=== PATIENT | female | born 1970 | race Caucasian/White ===

== ENCOUNTER → 2018-06-19 | Outpatient (CLI) | payer BC ==
[~2018-06-19] MED LIST: ALB17R INH; AUG500 PO; SILV20CR20 TP
--- NOTE | 2018-06-19 15:43 | RADIOLOGY IMAGING REPORT ---
FACILITY: [facility] - [place] PATIENT NAME: LEDY JOE : [id number] MR: [id number] V: [id number] EXAM DATE: [id number] ORDERING PHYSICIAN: KATYA CÁRDENAS TECHNOLOGIST: Gabi Paredes PROCEDURE:BILATERAL DIGITAL SCREENING MAMMOGRAM WITH CAD ASSISTED INTERPRETATION & 3D TOMOSYNTHESIS COMPARISON:Prior mammograms 10/12/09. INDICATIONS:SCREENING FINDINGS: There is very dense heterogeneous fibroglandular tissue throughout the breasts. There is a large well circumscribed rounded mass in the medial upper portion of the Right breast. This could represent a cyst although sonographic correlation is strongly recommended. In the lateral portion of the Right breast on the Right CC view junction of the anterior middle 1/3 there is a focal area of increased density for which Spot compression view is recommended for further evaluation. In the upper portion of the Right breast on the Right MLO view posterior 1/3 there is a focal area of increased density for which Spot compression view is recommended. The parenchymal pattern throughout the Left breast has remained stable. DIAGNOSTIC CATEGORY 0--INCOMPLETE: NEED ADDITIONAL IMAGING EVALUATION. RECOMMENDATIONS: ADDITIONAL MAMMOGRAPHIC VIEWS REQUIRED: RIGHT BREAST. ULTRASOUND: RIGHT BREAST. IMPRESSION: BIRADS 0: Incomplete. Additional view of the Right breast and Right breast Ultrasound is recommended as described. Dictated by: Michelle Colon M.D. on 06/19/2018 at 14:21 Transcribed by: MARCIA on 06/19/2018 at 15:16 Approved by: Michelle Colon M.D. on 06/19/2018 at 15:42 [facility]
== END ==
LOC: MAMO 02:20
PROVIDERS: ATTEND Nurse Practitioner Family
DX: Z12.31 Encounter for screening mammogram for malignant neoplasm of breast (principal); R92.8 Other abnormal and inconclusive findings on diagnostic imaging of breast
CPT/HCPCS: 77063; 77067

== ENCOUNTER → 2018-06-30 | Outpatient (CLI) | payer BC ==
--- NOTE | 2018-07-01 11:29 | RADIOLOGY IMAGING REPORT ---
FACILITY: [facility] PATIENT NAME: LEDY JOE : [id number] MR: [id number] V: [id number] EXAM DATE: [id number] ORDERING PHYSICIAN: KATYA CÁRDENAS TECHNOLOGIST: Stacy Resendiz RT(R)(CT) PROCEDURE:US RIGHT BREAST COMPARISON:Right mammograms of 06/30/18, 06/19/18. INDICATIONS:FURTHER EVAL FINDINGS: In the 1 o'clock position of the Right breast 2cm from the nipple is a 2.4cm simple cyst which would account for the mammographic findings. DIAGNOSTIC CATEGORY 2--BENIGN FINDING. RECOMMENDATIONS: ROUTINE MAMMOGRAM AND CLINICAL EVALUATION. IMPRESSION: BIRADS 2: Benign finding. There is a 2.4cm simple cyst 1 o'clock position of the Right breast 2cm from the nipple which accounts for the mammographic findings. Dictated by: Michelle Colon M.D. on 07/01/2018 at 8:51 Transcribed by: MARCIA on 07/01/2018 at 10:18 Approved by: Michelle Colon M.D. on 07/01/2018 at 11:27 [facility]
--- NOTE | 2018-07-01 11:29 | RADIOLOGY IMAGING REPORT ---
FACILITY: [facility] PATIENT NAME: LEDY JOE : [id number] MR: [id number] V: [id number] EXAM DATE: [id number] ORDERING PHYSICIAN: KATYA CÁRDENAS TECHNOLOGIST: Gabi Paredes PROCEDURE:RIGHT DIGITAL DIAGNOSTIC MAMMOGRAM WITH CAD ASSISTED INTERPRETATION & 3D TOMOSYNTHESIS COMPARISON:Prior mammograms 06/19/18, 10/12/09. INDICATIONS:FURTHER EVAL FINDINGS: The patient returns for Spot compression views in the Right MLO and Right CC projection. The focal area of increased density in the lateral Right breast on the recent Right CC view in the upper portion of the Right breast on the Right MLO view appears compressible and apparently represented summation shadows. There is no evidence of malignant appearing mass, malignant appearing calcifications or other secondary sign of malignancy in Right breast. DIAGNOSTIC CATEGORY 2--BENIGN FINDING. RECOMMENDATIONS: ROUTINE MAMMOGRAM AND CLINICAL EVALUATION. IMPRESSION: BIRADS 2: Benign finding. Focal area of increased density in the upper outer quadrant of the Right breast apparently represented summation shadow. The well circumscribed mass 1 o'clock position Right breast was shown sonographically to represent a simple cyst. Dictated by: Michelle Colon M.D. on 07/01/2018 at 8:54 Transcribed by: MARCIA on 07/01/2018 at 10:14 Approved by: Michelle Colon M.D. on 07/01/2018 at 11:27 [facility]
== END ==
LOC: MAMO 03:36
PROVIDERS: ATTEND Nurse Practitioner Family
DX: N60.01 Solitary cyst of right breast (principal)
CPT/HCPCS: 77061; 77065